=== PATIENT | female | born 1940 | race African-American/Black ===

== ENCOUNTER 2018-05-18 20:56 | Inpatient (IN) | payer MEDICARE, MEDICAID ==
[~2018-05-18] VITALS: Ht 157.5 cm; Wt 65.3 kg
[2018-05-19] MEDS ORDERED: SODIUM CHLORIDE 0.9% 1,000 ML IV ONE (00:09)
[2018-05-19] MEDS ORDERED: KETOROLAC 30MG/ML VIAL IV STA (00:09)
[2018-05-19] MEDS ORDERED: ONDANSETRON HCL 4MG/2ML INJ IV STA (00:09)
[2018-05-19 01:03] LABS: BASOPHILS % 0.4 % (0.0-2.0); EOSINOPHILS % 0.3 % (0.0-5.0); HEMATOCRIT. 33.8 % (36.0-48.0); HEMOGLOBIN. 11.4 g/dL (12.0-16.0); LYMPHOCYTES % 36.8 % (20.0-50.0); MEAN CORPUSCULAR VOLUME 94.6 fL (81.0-99.0); MEAN PLATELET VOLUME 8.4 fl (7.4-10.4); MONOCYTES % 9.8 % (2.0-8.0); NEUTROPHILS % 52.7 % (40.0-76.0); PLATELET 199 x1000/uL (130-400); RED BLOOD CELL COUNT 3.57 mill/uL (4.2-5.4); RED CELL DISTRIBUTION WIDTH 13.4 % (11.6-14.6)
[2018-05-19 01:09] LABS: CHLORIDE 93 mEq/L (98-107)
[2018-05-19] MEDS ORDERED: ONDANSETRON HCL 4MG/2ML INJ IV PRN (08:45)
[2018-05-19] MEDS ORDERED: DEXTROSE 50% WATER 50ML SYRINGE IV PRN (08:45)
[2018-05-19] MEDS: BLOOD SUGAR DIAGNOSTIC STRIP TEST SCH ×5 (09:19→21:00)
[2018-05-19] MEDS: INSULIN LISPRO 100 UNITS/ML SUBCUT SCH ×2 (11:50→19:13)
[2018-05-19] MEDS: SODIUM CHLORIDE 0.9% 1,000 ML IV SCH (12:45)
[2018-05-19 15:01] LABS: CLARITY URINE CLEAR (CLEAR); COLOR URINE YELLOW (YELLOW); KETONES URINE NEGATIVE (NEGATIVE); LEUKOCYTE ESTERASE URINE NEGATIVE (NEGATIVE); NITRITE URINE NEGATIVE (NEGATIVE); OCCULT BLOOD URINE NEGATIVE (NEGATIVE); PROTEIN URINE NEGATIVE (NEGATIVE); SPECIFIC GRAVITY URINE 1.019 (1.005-1.030); UROBILINOGEN URINE 0.2 E.U./dL (0.2-1.0)
[2018-05-19 15:51] LABS: CREATINE KINASE MB FRACTION 2.6 ng/mL (0.5-3.6)
[2018-05-19] MEDS ORDERED: INSULIN GLARGINE UD 100 UNITS/ML SYR SUBCUT SCH (22:00)
[2018-05-19 23:45] VITALS: BP 113/59
[2018-05-20] MEDS: INSULIN LISPRO 100 UNITS/ML SUBCUT SCH ×5 (00:38→20:45)
[2018-05-20] MEDS: INSULIN GLARGINE UD 100 UNITS/ML SYR SUBCUT SCH ×3 (00:39→21:35)
[2018-05-20 00:51] VITALS: BP 113/59
[2018-05-20] MEDS: SODIUM CHLORIDE 0.9% 1,000 ML IV SCH ×2 (02:27→14:55)
[2018-05-20 04:00] VITALS: BP 135/58
[2018-05-20 06:08] LABS: BASOPHILS % 0.3 % (0.0-2.0); EOSINOPHILS % 0.6 % (0.0-5.0); HEMATOCRIT. 30.3 % (36.0-48.0); HEMOGLOBIN. 10.5 g/dL (12.0-16.0); LYMPHOCYTES % 50.5 % (20.0-50.0); MEAN CORPUSCULAR VOLUME 92.4 fL (81.0-99.0); MEAN PLATELET VOLUME 8.9 fl (7.4-10.4); MONOCYTES % 9.2 % (2.0-8.0); NEUTROPHILS % 39.4 % (40.0-76.0); PLATELET 181 x1000/uL (130-400); RED BLOOD CELL COUNT 3.28 mill/uL (4.2-5.4); RED CELL DISTRIBUTION WIDTH 13.3 % (11.6-14.6)
[2018-05-20] MEDS: HYDROCODONE/ACETAMINOPHEN 5/325MG TABLET PO PRN ×3 (06:37→20:14)
[2018-05-20] MEDS: BLOOD SUGAR DIAGNOSTIC STRIP TEST SCH ×4 (06:39→20:38)
[2018-05-20 08:00] VITALS: BP 100/51
[2018-05-20] MEDS ORDERED: PNEUMOCOCCAL 23-VAL P-SAC VAC 0.5 ML IM ONE (08:00)
[2018-05-20] MEDS: ENOXAPARIN 40MG/0.4ML SYR SUBCUT SCH (09:25)
[2018-05-20] MEDS ORDERED: INFLUENZA VIRUS VACCINE(AFLURIA) 0.5ML SYR IM ONE (10:00)
[2018-05-20 12:00] VITALS: BP 113/52
[2018-05-20 16:00] VITALS: BP 126/70
[2018-05-20] MEDS ORDERED: HYDR-4005 MT (16:09)
[2018-05-20] MEDS ORDERED: NITR0.4T49 SL (16:09)
[2018-05-20] MEDS ORDERED: ZOLP5TAB2 MT (16:09)
[2018-05-20] MEDS ORDERED: FURO20TA4 MT (16:09)
[2018-05-20] MEDS ORDERED: LOSA100T14 MT (16:09)
[2018-05-20] MEDS ORDERED: LINA5TAB MT (16:09)
[2018-05-20] MEDS ORDERED: ACET-283 PO (16:09)
[2018-05-20] MEDS ORDERED: ASPI-1158 MT (16:09)
[2018-05-20] MEDS ORDERED: DOCU-150 MT (16:09)
[2018-05-20] MEDS ORDERED: ATOR20TA MT (16:09)
[2018-05-20] MEDS ORDERED: SENN-170 MT (16:09)
[2018-05-20] MEDS ORDERED: GLIP10TA10 MT (16:09)
[2018-05-20 20:00] VITALS: BP_SYST 111; BP_SYST 113; BP_DIAS 54; BP_DIAS 63
[2018-05-21] VITALS: BP 105/59
[2018-05-21 04:00] VITALS: BP 123/51
[2018-05-21] MEDS: SODIUM CHLORIDE 0.9% 1,000 ML IV SCH (04:15)
[2018-05-21] MEDS: BLOOD SUGAR DIAGNOSTIC STRIP TEST SCH ×4 (06:36→20:23)
[2018-05-21] MEDS: INSULIN LISPRO 100 UNITS/ML SUBCUT SCH ×4 (07:35→20:46)
[2018-05-21 08:00] VITALS: BP_SYST 142; BP_DIAS 65; BP_DIAS 69
[2018-05-21] MEDS: ENOXAPARIN 40MG/0.4ML SYR SUBCUT SCH (10:29)
[2018-05-21] MEDS: INSULIN GLARGINE UD 100 UNITS/ML SYR SUBCUT SCH ×2 (10:32→23:02)
[2018-05-21 11:55] VITALS: BP 136/50
[2018-05-21] MEDS: HYDROCODONE/ACETAMINOPHEN 5/325MG TABLET PO PRN (14:03)
[2018-05-21 16:00] VITALS: BP 122/48
[2018-05-21 17:13] LABS: VITAMIN B12 SERUM 630 pg/mL (211-911)
[2018-05-21 20:00] VITALS: BP_SYST 149; BP_SYST 156; BP_DIAS 60; BP_DIAS 64
[2018-05-21] MEDS: ACETAMINOPHEN 325MG TABLET PO PRN (22:58)
[2018-05-22] VITALS: BP 125/54
[2018-05-22 04:00] VITALS: BP 128/55
[2018-05-22] MEDS: INSULIN LISPRO 100 UNITS/ML SUBCUT SCH ×4 (05:42→20:59)
[2018-05-22] MEDS: BLOOD SUGAR DIAGNOSTIC STRIP TEST SCH ×4 (05:42→20:55)
[2018-05-22 07:03] LABS: BASOPHILS % 0.4 % (0.0-2.0); EOSINOPHILS % 1.2 % (0.0-5.0); HEMATOCRIT. 30.4 % (36.0-48.0); HEMOGLOBIN. 10.4 g/dL (12.0-16.0); LYMPHOCYTES % 54.9 % (20.0-50.0); MEAN CORPUSCULAR HEMOGLOBIN 31.7 pg (28.0-32.0); MEAN CORPUSCULAR VOLUME 92.8 fL (81.0-99.0); MEAN PLATELET VOLUME 8.8 fl (7.4-10.4); MONOCYTES % 8.8 % (2.0-8.0); NEUTROPHILS % 34.7 % (40.0-76.0); PLATELET 182 x1000/uL (130-400); RED BLOOD CELL COUNT 3.27 mill/uL (4.2-5.4); RED CELL DISTRIBUTION WIDTH 13.4 % (11.6-14.6)
[2018-05-22 08:00] VITALS: BP_SYST 123; BP_SYST 132; BP_SYST 136; BP_DIAS 57; BP_DIAS 64; BP_DIAS 78
[2018-05-22] MEDS: ENOXAPARIN 40MG/0.4ML SYR SUBCUT SCH (10:49)
[2018-05-22] MEDS: INSULIN GLARGINE UD 100 UNITS/ML SYR SUBCUT SCH ×2 (10:50→22:35)
[2018-05-22 12:00] VITALS: BP 128/54
[2018-05-22 16:00] VITALS: BP 142/62
[2018-05-22 20:00] VITALS: BP 127/53
[2018-05-22] MEDS: HYDROCODONE/ACETAMINOPHEN 5/325MG TABLET PO PRN (22:32)
[2018-05-23] VITALS: BP 139/52
[2018-05-23 04:00] VITALS: BP 133/58
[2018-05-23] MEDS: INSULIN LISPRO 100 UNITS/ML SUBCUT SCH ×4 (06:11→21:00)
[2018-05-23] MEDS: BLOOD SUGAR DIAGNOSTIC STRIP TEST SCH ×4 (06:11→20:58)
[2018-05-23 07:44] LABS: BASOPHILS % 0.4 % (0.0-2.0); EOSINOPHILS % 1.5 % (0.0-5.0); HEMATOCRIT. 30.1 % (36.0-48.0); HEMOGLOBIN. 10.2 g/dL (12.0-16.0); LYMPHOCYTES % 54.9 % (20.0-50.0); MEAN CORPUSCULAR HEMOGLOBIN 31.9 pg (28.0-32.0); MEAN PLATELET VOLUME 8.7 fl (7.4-10.4); MONOCYTES % 8.4 % (2.0-8.0); NEUTROPHILS % 34.8 % (40.0-76.0); PLATELET 165 x1000/uL (130-400); RED BLOOD CELL COUNT 3.21 mill/uL (4.2-5.4); RED CELL DISTRIBUTION WIDTH 13.4 % (11.6-14.6)
[2018-05-23 08:00] VITALS: BP 111/50
[2018-05-23 08:37] LABS: CHLORIDE 107 mEq/L (98-107)
[2018-05-23] MEDS: ENOXAPARIN 40MG/0.4ML SYR SUBCUT SCH (09:21)
[2018-05-23] MEDS: INSULIN GLARGINE UD 100 UNITS/ML SYR SUBCUT SCH ×2 (11:30→21:21)
[2018-05-23 12:00] VITALS: BP 132/67
[2018-05-23 16:00] VITALS: BP 129/57
[2018-05-23 20:00] VITALS: BP_SYST 106; BP_SYST 118; BP_SYST 129; BP_DIAS 52; BP_DIAS 60; BP_DIAS 64
[2018-05-24] VITALS (7 sets, daily range): BP systolic 110–143; BP diastolic 59–90
[2018-05-24] MEDS: ACETAMINOPHEN 325MG TABLET PO PRN (04:09)
[2018-05-24 06:24] LABS: BASOPHILS % 0.5 % (0.0-2.0); EOSINOPHILS % 1.1 % (0.0-5.0); HEMATOCRIT. 28.6 % (36.0-48.0); HEMOGLOBIN. 9.8 g/dL (12.0-16.0); LYMPHOCYTES % 42.4 % (20.0-50.0); MEAN CORPUSCULAR HEMOGLOBIN 31.8 pg (28.0-32.0); MEAN CORPUSCULAR VOLUME 93.1 fL (81.0-99.0); MEAN PLATELET VOLUME 8.6 fl (7.4-10.4); MONOCYTES % 10.1 % (2.0-8.0); NEUTROPHILS % 45.9 % (40.0-76.0); PLATELET 166 x1000/uL (130-400); RED BLOOD CELL COUNT 3.07 mill/uL (4.2-5.4); RED CELL DISTRIBUTION WIDTH 13.6 % (11.6-14.6)
[2018-05-24 07:15] LABS: CHLORIDE 108 mEq/L (98-107)
[2018-05-24] MEDS: INSULIN LISPRO 100 UNITS/ML SUBCUT SCH ×3 (07:40→17:40)
[2018-05-24] MEDS: BLOOD SUGAR DIAGNOSTIC STRIP TEST SCH ×3 (07:42→17:27)
[2018-05-24] MEDS: ENOXAPARIN 40MG/0.4ML SYR SUBCUT SCH (11:03)
[2018-05-24] MEDS: INSULIN GLARGINE UD 100 UNITS/ML SYR SUBCUT SCH (12:39)
== END 2018-05-24 22:45 | disposition home health service (06) | DRG 183 ==
LOC: ER 20:56 → 8WST 05-19 03:03 → EDBEDREQTM 05-19 03:05 → EDBEDREQ 05-19 03:05 → ENRESERV 05-19 20:29 → 8WST 05-20 09:05
PROVIDERS: ADMIT Internal Medicine; ATTEND Internal Medicine
PROC: 4A00X4Z Measurement of Central Nervous Electrical Activity, External Approach (ICD-10-PCS; principal; 2018-05-23)
DX: S22.42XA Multiple fractures of ribs, left side, initial encounter for closed fracture (principal); I21.4 Non-ST elevation (NSTEMI) myocardial infarction; E44.0 Moderate protein-calorie malnutrition; E87.1 Hypo-osmolality and hyponatremia; F03.91 Unspecified dementia, unspecified severity, with behavioral disturbance; E11.65 Type 2 diabetes mellitus with hyperglycemia; E78.5 Hyperlipidemia, unspecified; I10 Essential (primary) hypertension; E87.8 Other disorders of electrolyte and fluid balance, not elsewhere classified; D64.9 Anemia, unspecified; F03.90 Unspecified dementia, unspecified severity, without behavioral disturbance, psychotic disturbance, mood disturbance, and anxiety; K74.60 Unspecified cirrhosis of liver; M16.12 Unilateral primary osteoarthritis, left hip; Z96.649 Presence of unspecified artificial hip joint; W18.30XA Fall on same level, unspecified, initial encounter; Y93.01 Activity, walking, marching and hiking; Y92.090 Kitchen in other non-institutional residence as the place of occurrence of the external cause; Y99.8 Other external cause status; Z86.73 Personal history of transient ischemic attack (TIA), and cerebral infarction without residual deficits; Z68.26 Body mass index [BMI] 26.0-26.9, adult; Z90.49 Acquired absence of other specified parts of digestive tract
CPT/HCPCS: 36415; 71250; 74176; 80048; 80061; 82550; 82553; 82607; 82962; 84443; 84484; 90686; 90732; 93005; 93306; 96361; 96372; 96374; 96375; 97116; 97162; 97530; 99284; 99285; J1650; J1815; J1885; J2405; J7030

== ENCOUNTER 2020-10-13 12:26 | Emergency (ER) | payer MEDICARE, MEDICAID ==
[~2020-10-13] VITALS: Ht 162.6 cm; Wt 72.0 kg
[~2020-10-13 12:26] MED LIST: ACET-283 PO; ASPI-1406 MT; ATOR20TA MT; DOCU-150 MT; FURO20TA4 MT; HYDR-4005 MT; LINA5TAB MT; LOSA100T32 MT; NITR0.4T49 SL; SENN-257 MT; ZOLP5TAB2 MT
[2020-10-13 12:54] VITALS: BP 106/54
[2020-10-13] MEDS ORDERED: GABAPENTIN 100MG CAPSULE PO ONE (13:45)
[2020-10-13] MEDS ORDERED: ACETAMINOPHEN 325MG TABLET PO ONE (13:45)
[2020-10-13] MEDS ORDERED: CEPHALEXIN 250MG CAPSULE PO ONE (13:45)
[2020-10-13] MEDS ORDERED: CEPH500C2 MT (14:35)
[2020-10-13] MEDS ORDERED: ACET-2708 MT (14:35)
[2020-10-13] MEDS ORDERED: GABA-529 MT (14:35)
== END 2020-10-13 15:04 | disposition home or self-care (01) ==
LOC: ER 12:26
DX: L03.115 Cellulitis of right lower limb (principal); G62.9 Polyneuropathy, unspecified; E11.9 Type 2 diabetes mellitus without complications; I10 Essential (primary) hypertension; E78.00 Pure hypercholesterolemia, unspecified; M19.90 Unspecified osteoarthritis, unspecified site; Z96.641 Presence of right artificial hip joint
CPT/HCPCS: 73630; 99284

== ENCOUNTER 2021-08-14 22:36 | Inpatient (IN) | payer MEDICARE, MEDICAID ==
[~2021-08-14] VITALS: Ht 195.6 cm; Wt 78.1 kg
[~2021-08-14 22:36] MED LIST changes: +ACET-2708 MT; +CEPH500C2 MT; +GABA-529 MT
[2021-08-15] MEDS ORDERED: SODIUM CHLORIDE 0.9% 1,000 ML IV ONE
[2021-08-15 00:14] LABS: CHLORIDE 93 mEq/L (98-107); HEMATOCRIT. 31.1 % (36.0-48.0); HEMOGLOBIN. 10.4 g/dL (12.0-16.0); MEAN CORPUSCULAR HEMOGLOBIN 31.3 pg (28.0-32.0); MEAN CORPUSCULAR VOLUME 93.7 fL (81.0-99.0); MEAN PLATELET VOLUME 9.3 fl (7.4-10.4); PLATELET 131 x1000/uL (130-400); RED BLOOD CELL COUNT 3.32 mill/uL (4.2-5.4); RED CELL DISTRIBUTION WIDTH 13.9 % (11.6-14.6)
[2021-08-15 00:30] LABS: BETA HYDROXYBUTYRATE 0.1 mMol/L (0.0-0.3)
[2021-08-15] MEDS ORDERED: SODIUM CHLORIDE 0.9% 1000ML BAG (SEPSIS BOLUS) IV ONE (00:45)
[2021-08-15] MEDS ORDERED: ASPIRIN 325MG EC TABLET PO ONE (00:45)
[2021-08-15 01:33] LABS: CLARITY URINE CLOUDY (CLEAR); COLOR URINE YELLOW (YELLOW); KETONES URINE NEGATIVE (NEGATIVE); LEUKOCYTE ESTERASE URINE 1+ (NEGATIVE); NITRITE URINE NEGATIVE (NEGATIVE); OCCULT BLOOD URINE NEGATIVE (NEGATIVE); PROTEIN URINE TRACE (NEGATIVE); SPECIFIC GRAVITY URINE 1.015 (1.005-1.030)
[2021-08-15] MEDS ORDERED: CEFTRIAXONE 1 G PREMIX 50 ML IV ONE (03:00)
[2021-08-15 07:12] LABS: PLATELET ESTIMATE NORMAL
[2021-08-15] MEDS ORDERED: ONDANSETRON HCL 4MG/2ML INJ IV PRN (09:15)
[2021-08-15] MEDS ORDERED: DIPHENHYDRAMINE 50MG/ML VIAL IV PRN (09:15)
[2021-08-15] MEDS ORDERED: IPRATROPIUM/ALBUTEROL 0.5-3(2.5)MG/3ML NEB HHN PRN (09:15)
[2021-08-15] MEDS ORDERED: CLONIDINE 0.1MG TABLET PO PRN (09:15)
[2021-08-15] MEDS ORDERED: ACETAMINOPHEN 325MG TABLET PO PRN (09:15)
[2021-08-15 10:00] VITALS: BP 134/70
[2021-08-15] MEDS: SODIUM CHLORIDE 0.9% 1,000 ML IV SCH (10:00)
[2021-08-15 12:00] VITALS: BP 134/64
[2021-08-15 16:00] VITALS: BP 143/84
[2021-08-15] MEDS ORDERED: LORA-249 PO (16:35)
[2021-08-15] MEDS ORDERED: DONE-51 MT (16:37)
[2021-08-15] MEDS ORDERED: LOSA25TA26 MT (16:39)
[2021-08-15] MEDS ORDERED: DEXTROSE 50% WATER 50ML SYRINGE IV PRN (17:15)
[2021-08-15] MEDS: GUAIFENESIN 200MG/10ML SUGAR FREE UDC PO PRN (17:15)
[2021-08-15] MEDS: BLOOD SUGAR DIAGNOSTIC STRIP TEST SCH ×2 (17:37→21:00)
[2021-08-15] MEDS: INSULIN LISPRO 100 UNITS/ML SUBCUT SCH ×2 (17:40→22:10)
[2021-08-15 20:00] VITALS: BP 128/56
[2021-08-16] VITALS: BP 148/82
[2021-08-16] MEDS: GUAIFENESIN 200MG/10ML SUGAR FREE UDC PO PRN ×3 (00:45→17:23)
[2021-08-16] MEDS: SODIUM CHLORIDE 0.9% 1,000 ML IV SCH ×2 (01:24→12:37)
[2021-08-16 04:00] VITALS: BP 147/83
[2021-08-16] MEDS ORDERED: CEFTRIAXONE 1,000 MG in DEXTROSE 5% WATER 50 ML IV SCH (06:00)
[2021-08-16] MEDS: BLOOD SUGAR DIAGNOSTIC STRIP TEST SCH ×4 (06:18→20:54)
[2021-08-16 07:25] LABS: BASOPHILS % 0.1 % (0.0-2.0); EOSINOPHILS % 1.1 % (0.0-5.0); HEMATOCRIT. 28.9 % (36.0-48.0); HEMOGLOBIN. 9.7 g/dL (12.0-16.0); LYMPHOCYTES % 16.5 % (20.0-50.0); MEAN CORPUSCULAR HEMOGLOBIN 31.2 pg (28.0-32.0); MEAN CORPUSCULAR VOLUME 92.7 fL (81.0-99.0); MEAN PLATELET VOLUME 9.2 fl (7.4-10.4); MONOCYTES % 4.1 % (2.0-8.0); NEUTROPHILS % 78.2 % (40.0-76.0); PLATELET 136 x1000/uL (130-400); RED BLOOD CELL COUNT 3.11 mill/uL (4.2-5.4); RED CELL DISTRIBUTION WIDTH 13.9 % (11.6-14.6)
[2021-08-16 07:40] LABS: CHLORIDE 110 mEq/L (98-107)
[2021-08-16 07:52] LABS: CREATINE KINASE 71 IU/L (26-192); PHOSPHORUS 2.1 mg/dL (2.5-4.9)
[2021-08-16 08:00] VITALS: BP 150/61
[2021-08-16] MEDS: ENOXAPARIN 30MG/0.3ML SYR SUBCUT SCH (08:06)
[2021-08-16] MEDS: INSULIN LISPRO 100 UNITS/ML SUBCUT SCH ×4 (08:07→20:54)
[2021-08-16 12:00] VITALS: BP 147/64
[2021-08-16] MEDS: LORAZEPAM 2MG/ML CPJ IV PRN (13:29)
[2021-08-16] MEDS ORDERED: POTASSIUM CHLORIDE 20MEQ TABLET SR PO NR (14:00)
[2021-08-16] MEDS ORDERED: POTASSIUM PHOS,M-BASIC-D-BASIC 15 MMOL in DEXT 5% WATER 245 ML IV NR (15:30)
[2021-08-16 16:00] VITALS: BP 143/77
[2021-08-16 20:00] VITALS: BP 162/77
[2021-08-17] VITALS: BP 158/59
[2021-08-17] MEDS: LORAZEPAM 2MG/ML CPJ IV PRN (00:13)
[2021-08-17 04:00] VITALS: BP 159/98
[2021-08-17] MEDS: SODIUM CHLORIDE 0.9% 1,000 ML IV SCH (04:10)
[2021-08-17] MEDS ORDERED: CEFTRIAXONE 1,000 MG in DEXTROSE 5% WATER 50 ML IV SCH (06:00)
[2021-08-17] MEDS: BLOOD SUGAR DIAGNOSTIC STRIP TEST SCH ×2 (06:52→12:40)
[2021-08-17 06:58] LABS: BASOPHILS % 0.3 % (0.0-2.0); EOSINOPHILS % 0.8 % (0.0-5.0); HEMATOCRIT. 29.6 % (36.0-48.0); HEMOGLOBIN. 10.2 g/dL (12.0-16.0); LYMPHOCYTES % 24.3 % (20.0-50.0); MEAN CORPUSCULAR VOLUME 93.2 fL (81.0-99.0); MEAN PLATELET VOLUME 8.5 fl (7.4-10.4); MONOCYTES % 6.4 % (2.0-8.0); NEUTROPHILS % 68.2 % (40.0-76.0); PLATELET 143 x1000/uL (130-400); RED BLOOD CELL COUNT 3.17 mill/uL (4.2-5.4)
[2021-08-17 07:57] LABS: PHOSPHORUS 3.3 mg/dL (2.5-4.9)
[2021-08-17 08:00] VITALS: BP 126/64
[2021-08-17] MEDS: INSULIN LISPRO 100 UNITS/ML SUBCUT SCH ×2 (08:10→13:00)
[2021-08-17] MEDS: GUAIFENESIN 200MG/10ML SUGAR FREE UDC PO PRN (08:14)
[2021-08-17] MEDS: ENOXAPARIN 30MG/0.3ML SYR SUBCUT SCH (08:15)
[2021-08-17] MEDS ORDERED: LEVO500T90 MT (10:33)
[2021-08-17 10:57] VITALS: BP 146/62
[2021-08-17 12:00] VITALS: BP 176/62
[2021-08-31] MEDS ORDERED: CEPH500C2 MT (09:57)
== END 2021-08-17 14:43 | disposition home or self-care (01) | DRG 689 ==
LOC: ER 22:36 → EDBEDREQ 08-15 07:33 → EDBEDREQTM 08-15 07:34 → 7WST 08-15 07:50
PROVIDERS: ADMIT Internal Medicine; ATTEND Internal Medicine
DX: N39.0 Urinary tract infection, site not specified (principal); N17.0 Acute kidney failure with tubular necrosis; E44.0 Moderate protein-calorie malnutrition; E87.1 Hypo-osmolality and hyponatremia; G93.40 Encephalopathy, unspecified; D64.9 Anemia, unspecified; E11.65 Type 2 diabetes mellitus with hyperglycemia; E78.00 Pure hypercholesterolemia, unspecified; F03.90 Unspecified dementia, unspecified severity, without behavioral disturbance, psychotic disturbance, mood disturbance, and anxiety; E78.5 Hyperlipidemia, unspecified; E86.9 Volume depletion, unspecified; I10 Essential (primary) hypertension; Z20.822 Contact with and (suspected) exposure to COVID-19; Z68.20 Body mass index [BMI] 20.0-20.9, adult; Z79.2 Long term (current) use of antibiotics; Z79.82 Long term (current) use of aspirin; Z79.899 Other long term (current) drug therapy; Z96.649 Presence of unspecified artificial hip joint; Z90.49 Acquired absence of other specified parts of digestive tract; Z83.3 Family history of diabetes mellitus; Z82.49 Family history of ischemic heart disease and other diseases of the circulatory system; D72.825 Bandemia
CPT/HCPCS: 36415; 71045; 76770; 80048; 80053; 81003; 82010; 82550; 82962; 83605; 83735; 84100; 84443; 84484; 85025; 87077; 87186; 87426; 93005; 93306; 93970; 99285; J0696; J1200; J1650; J1815; J2060; J3490; J7030; J7060

== ENCOUNTER 2021-09-04 01:43 | Emergency (ER) | payer MEDICARE, MEDICAID ==
[~2021-09-04] VITALS: Ht 157.5 cm; Wt 78.0 kg
[~2021-09-04 01:43] MED LIST changes: +DONE-51 MT; -FURO20TA4 MT; -GABA-529 MT; -HYDR-4005 MT; +LORA-249 PO; -LOSA100T32 MT; +LOSA25TA26 MT; -NITR0.4T49 SL; -SENN-257 MT; -ZOLP5TAB2 MT
[2021-09-04] MEDS ORDERED: HYDROCODONE/ACETAMINOPHEN 5/325MG TABLET PO STA (03:09)
[2021-09-04 03:56] LABS: EOSINOPHILS % 2.8 % (0.0-5.0); HEMATOCRIT. 30.1 % (36.0-48.0); HEMOGLOBIN. 10.1 g/dL (12.0-16.0); LYMPHOCYTES % 34.3 % (20.0-50.0); MEAN CORPUSCULAR HEMOGLOBIN 31.4 pg (28.0-32.0); MEAN CORPUSCULAR VOLUME 93.1 fL (81.0-99.0); MEAN PLATELET VOLUME 8.1 fl (7.4-10.4); MONOCYTES % 9.3 % (2.0-8.0); NEUTROPHILS % 52.6 % (40.0-76.0); PLATELET 220 x1000/uL (130-400); RED BLOOD CELL COUNT 3.23 mill/uL (4.2-5.4); RED CELL DISTRIBUTION WIDTH 14.1 % (11.6-14.6)
[2021-09-04 04:06] LABS: CHLORIDE 101 mEq/L (98-107)
[2021-09-04] MEDS ORDERED: MORPHINE SULFATE 4 MG/ML CPJ (NOT FOR IM USE) IV ONE (05:45)
[2021-09-04 09:15] VITALS: BP 152/71
== END 2021-09-04 09:10 | disposition left against medical advice (07) ==
LOC: ER 02:13 → CANBEDREQ 09:06 → ER 09:10
DX: R10.12 Left upper quadrant pain (principal); F03.90 Unspecified dementia, unspecified severity, without behavioral disturbance, psychotic disturbance, mood disturbance, and anxiety; E11.9 Type 2 diabetes mellitus without complications; E78.00 Pure hypercholesterolemia, unspecified; I10 Essential (primary) hypertension; Z79.82 Long term (current) use of aspirin
CPT/HCPCS: 36415; 71045; 74176; 80053; 84484; 85025; 99285

== ENCOUNTER 2022-12-11 09:01 | Emergency (ER) | payer MEDICARE, MEDICAID ==
[~2022-12-11] VITALS: Ht 165.1 cm; Wt 77.0 kg
[2022-12-11 09:06] VITALS: O2SAT 100
[2022-12-11 10:32] LABS: INR 1.2; PROTHROMBIN TIME 12.7 sec (9.6-11.0)
[2022-12-11 10:34] LABS: BASOPHILS % 0.1 % (0.0-2.0); EOSINOPHILS % 0.4 % (0.0-5.0); HEMATOCRIT. 33.4 % (36.0-48.0); HEMOGLOBIN. 11.3 g/dL (12.0-16.0); LYMPHOCYTES % 15.9 % (20.0-50.0); MEAN CORPUSCULAR HEMOGLOBIN 31.3 pg (28.0-32.0); MEAN CORPUSCULAR HGB CONC 33.8 g/dL (31.0-37.0); MEAN CORPUSCULAR VOLUME 92.6 fL (81.0-99.0); MEAN PLATELET VOLUME 8.9 fl (7.4-10.4); MONOCYTES % 4.8 % (2.0-8.0); NEUTROPHILS % 78.8 % (40.0-76.0); PLATELET 156 x1000/uL (130-400); RED BLOOD CELL COUNT 3.61 mill/uL (4.2-5.4); RED CELL DISTRIBUTION WIDTH 14.3 % (11.6-14.6); WHITE BLOOD COUNT 11.3 x1000/uL (4.5-11.0)
[2022-12-11 10:41] LABS: CHLORIDE 108 mEq/L (98-107); INDEX HEMOLYSI 1 (1-3); INDEX ICTERIC 1 (1-4); INDEX LIPEMIC 1 (1-3); POTASSIUM 4.1 mEq/L (3.5-5.1); SODIUM 137 mEq/L (136-145)
[2022-12-11 10:52] LABS: ALANINE AMINOTRANSFERASE 27 IU/L (13-61); ASPARTATE AMINOTRANSFERASE 33 IU/L (15-37); BILIRUBIN TOTAL 0.8 mg/dL (0.1-1.0); CARBON DIOXIDE 24 mEq/L (21-32); CREATININE 1.3 mg/dL (0.6-1.3); GLUCOSE 186 mg/dL (70-105); PROTEIN TOTAL 8.3 g/dL (6.0-8.3); UREA NITROGEN BLOOD 25 mg/dL (7-21)
[2022-12-11 12:01] LABS: CLARITY URINE CLEAR (CLEAR); COLOR URINE YELLOW (YELLOW); GLUCOSE URINE TRACE (NEGATIVE); KETONES URINE NEGATIVE (NEGATIVE); LEUKOCYTE ESTERASE URINE NEGATIVE (NEGATIVE); NITRITE URINE NEGATIVE (NEGATIVE); OCCULT BLOOD URINE TRACE (NEGATIVE); PH URINE 5.5 (4.5-8.0); PROTEIN URINE TRACE (NEGATIVE); SPECIFIC GRAVITY URINE 1.014 (1.005-1.030); UROBILINOGEN URINE 0.2 E.U./dL (0.2-1.0)
[2022-12-11 12:03] LABS: YEAST URINE NONE SEEN
[2022-12-11 12:18] LABS: BACTERIA URINE FEW; RBC URINE 0-2 /hpf (0-2); SQUAMOUS EPITHELIAL CELL URINE FEW /lpf (RARE/1+); WBC URINE 0-2 /hpf (0-2)
[2022-12-11] MEDS ORDERED: ACET-2708 MT (14:43)
[2022-12-11 15:53] VITALS: BP 149/72; PULSE 70; RESP 18; TEMP 97.4
== END 2022-12-11 16:01 | disposition home or self-care (01) ==
LOC: ER 09:01
DX: M13.861 Other specified arthritis, right knee (principal); S80.01XA Contusion of right knee, initial encounter; R53.1 Weakness; R42 Dizziness and giddiness; I10 Essential (primary) hypertension; E78.00 Pure hypercholesterolemia, unspecified; E11.9 Type 2 diabetes mellitus without complications; Z79.899 Other long term (current) drug therapy; X58.XXXA Exposure to other specified factors, initial encounter; Y93.89 Activity, other specified; Y92.89 Other specified places as the place of occurrence of the external cause; Y99.8 Other external cause status
CPT/HCPCS: 36415; 73560; 80053; 81003; 83605; 85025; 93005; 99285

== ENCOUNTER 2022-12-19 11:16 | Inpatient (IN) | payer MEDICARE, MEDICAID ==
[~2022-12-19] VITALS: Ht 162.6 cm; Wt 84.8 kg
[2022-12-19 04:42] VITALS: BP 132/68; PULSE 67; RESP 20; TEMP 97.6
[2022-12-19] MEDS ORDERED: MORPHINE SULFATE 2 MG/ML CPJ (NOT FOR IM USE) IV NR (11:30)
[2022-12-19] MEDS ORDERED: NALOXONE HCL 0.4MG/ML VIAL IV PRN (11:45)
[2022-12-19 13:45] LABS: BASOPHILS % 0.2 % (0.0-2.0); EOSINOPHILS % 0.1 % (0.0-5.0); HEMOGLOBIN. 8.9 g/dL (12.0-16.0); LYMPHOCYTES % 12.5 % (20.0-50.0); MEAN CORPUSCULAR HEMOGLOBIN 30.8 pg (28.0-32.0); MEAN CORPUSCULAR VOLUME 93.5 fL (81.0-99.0); MEAN PLATELET VOLUME 8.4 fl (7.4-10.4); MONOCYTES % 6.1 % (2.0-8.0); NEUTROPHILS % 81.1 % (40.0-76.0); PLATELET 225 x1000/uL (130-400); RED BLOOD CELL COUNT 2.88 mill/uL (4.2-5.4); WHITE BLOOD COUNT 15.2 x1000/uL (4.5-11.0)
[2022-12-19 14:57] LABS: ALANINE AMINOTRANSFERASE 22 IU/L (13-61); ASPARTATE AMINOTRANSFERASE 19 IU/L (15-37); BILIRUBIN TOTAL 0.4 mg/dL (0.1-1.0); CALCIUM 7.2 mg/dL (8.5-10.1); CREATININE 3.5 mg/dL (0.6-1.3); NT PRO B-TYPE NATRIURETIC PEP 3861 pg/mL (5-125); PROTEIN TOTAL 7.7 g/dL (6.0-8.3); TROPONIN I HIGH SENSITIVITY 20 ng/L (<54)
[2022-12-19 15:50] LABS: ALBUMIN 2.5 g/dL (3.4-5.0); CARBON DIOXIDE 13 mEq/L (21-32); CHLORIDE 104 mEq/L (98-107); GLUCOSE 257 mg/dL (70-105); INDEX HEMOLYSI 1 (1-3); INDEX ICTERIC 1 (1-4); INDEX LIPEMIC 1 (1-3); POTASSIUM 4.5 mEq/L (3.5-5.1); SODIUM 130 mEq/L (136-145)
[2022-12-19 16:14] LABS: UREA NITROGEN BLOOD 122 mg/dL (7-21)
[2022-12-19 20:00] VITALS: BP 161/77; PULSE 85; RESP 16; TEMP 97.6
[2022-12-19] MEDS ORDERED: ACETAMINOPHEN 325MG TABLET PO PRN (22:15)
[2022-12-19] MEDS ORDERED: DEXTROSE 50% WATER 50ML SYRINGE IV PRN (22:30)
[2022-12-20] MEDS: ACETAMINOPHEN 325MG TABLET PO PRN ×2 (00:23→22:16)
[2022-12-20 04:00] VITALS: BP 119/53; PULSE 80; RESP 18; TEMP 98
[2022-12-20] MEDS: INSULIN LISPRO 100 UNITS/ML SUBCUT SCH ×4 (07:16→21:11)
[2022-12-20 07:24] LABS: BASOPHILS % 0.2 % (0.0-2.0); EOSINOPHILS % 0.2 % (0.0-5.0); HEMATOCRIT. 27.3 % (36.0-48.0); HEMOGLOBIN. 9.1 g/dL (12.0-16.0); LYMPHOCYTES % 26.7 % (20.0-50.0); MEAN CORPUSCULAR HEMOGLOBIN 31.5 pg (28.0-32.0); MEAN CORPUSCULAR HGB CONC 33.4 g/dL (31.0-37.0); MEAN CORPUSCULAR VOLUME 94.2 fL (81.0-99.0); MEAN PLATELET VOLUME 8.4 fl (7.4-10.4); NEUTROPHILS % 65.9 % (40.0-76.0); PLATELET 255 x1000/uL (130-400); RED CELL DISTRIBUTION WIDTH 15.1 % (11.6-14.6); WHITE BLOOD COUNT 13.1 x1000/uL (4.5-11.0)
[2022-12-20] MEDS: BLOOD SUGAR DIAGNOSTIC STRIP TEST SCH ×4 (09:00→21:05)
[2022-12-20] MEDS: AMLODIPINE 10MG TABLET PO SCH (09:00)
[2022-12-20] MEDS: ASPIRIN 81MG TABLET PO SCH (09:00)
[2022-12-20 09:01] VITALS: BP 137/63; PULSE 70; RESP 18; TEMP 97.7
[2022-12-20] MEDS: INSULIN GLARGINE 100 UNITS/ML SUBCUT SCH ×2 (12:00→21:45)
[2022-12-20 14:26] LABS: INDEX HEMOLYSI 3 (1-3); INDEX ICTERIC 1 (1-4); INDEX LIPEMIC 1 (1-3)
[2022-12-20 14:41] LABS: ALANINE AMINOTRANSFERASE 19 IU/L (13-61); ALBUMIN 2.3 g/dL (3.4-5.0); ASPARTATE AMINOTRANSFERASE 31 IU/L (15-37); BILIRUBIN DIRECT 0.1 mg/dL (0.0-0.2); BILIRUBIN TOTAL 0.6 mg/dL (0.1-1.0); CALCIUM 6.9 mg/dL (8.5-10.1); CARBON DIOXIDE 10 mEq/L (21-32); CHOLESTEROL 98 mg/dL (<200); GLUCOSE 204 mg/dL (70-105); HDL CHOLESTEROL 22 mg/dL (40-59); LDL CHOLESTEROL 58 mg/dL (5-100); PHOSPHORUS 7.2 mg/dL (2.5-4.9); PROTEIN TOTAL 7.6 g/dL (6.0-8.3); TRIGLYCERIDE 281 mg/dL (0-150)
[2022-12-20] MEDS ORDERED: SODIUM CHLORIDE 0.9% 1,000 ML IV SCH (15:30)
[2022-12-20 16:15] LABS: UREA NITROGEN BLOOD 121 mg/dL (7-21)
[2022-12-20 20:00] VITALS: PULSE 76; RESP 18; TEMP 96.7
[2022-12-20] MEDS ORDERED: ATORVASTATIN CALCIUM 20MG TABLET PO SCH (21:00)
[2022-12-20] MEDS: ENOXAPARIN 30MG/0.3ML SYR SUBCUT SCH (21:00)
[2022-12-20 21:20] LABS: CHLORIDE 106 mEq/L (98-107); POTASSIUM 4.2 mEq/L (3.5-5.1); SODIUM 131 mEq/L (136-145)
[2022-12-21] VITALS: BP 109/54; PULSE 72; RESP 18; TEMP 96.8
[2022-12-21 04:00] VITALS: BP 113/56; PULSE 70; RESP 17; TEMP 96.2
[2022-12-21] MEDS: ACETAMINOPHEN 325MG TABLET PO PRN ×2 (05:42→15:24)
[2022-12-21] MEDS: INSULIN LISPRO 100 UNITS/ML SUBCUT SCH ×4 (07:00→21:00)
[2022-12-21 07:03] LABS: BASOPHILS % 0.3 % (0.0-2.0); EOSINOPHILS % 0.2 % (0.0-5.0); HEMATOCRIT. 25.6 % (36.0-48.0); HEMOGLOBIN. 8.6 g/dL (12.0-16.0); LYMPHOCYTES % 24.6 % (20.0-50.0); MEAN CORPUSCULAR HEMOGLOBIN 31.9 pg (28.0-32.0); MEAN CORPUSCULAR HGB CONC 33.8 g/dL (31.0-37.0); MEAN CORPUSCULAR VOLUME 94.5 fL (81.0-99.0); MEAN PLATELET VOLUME 8.3 fl (7.4-10.4); MONOCYTES % 6.9 % (2.0-8.0); PLATELET 252 x1000/uL (130-400); RED BLOOD CELL COUNT 2.71 mill/uL (4.2-5.4); RED CELL DISTRIBUTION WIDTH 15.5 % (11.6-14.6); WHITE BLOOD COUNT 12.5 x1000/uL (4.5-11.0)
[2022-12-21 08:00] VITALS: BP 116/48; PULSE 69; RESP 18; TEMP 96.9
[2022-12-21] MEDS: BLOOD SUGAR DIAGNOSTIC STRIP TEST SCH ×4 (08:46→21:00)
[2022-12-21] MEDS: AMLODIPINE 10MG TABLET PO SCH (08:49)
[2022-12-21] MEDS: ASPIRIN 81MG TABLET PO SCH (08:49)
[2022-12-21 09:37] LABS: POTASSIUM 3.7 mEq/L (3.5-5.1)
[2022-12-21 09:42] LABS: CALCIUM 7.3 mg/dL (8.5-10.1); CREATININE 2.9 mg/dL (0.6-1.3)
[2022-12-21] MEDS: INSULIN GLARGINE 100 UNITS/ML SUBCUT SCH (10:00)
[2022-12-21 12:00] VITALS: BP 99/33; PULSE 60; RESP 19; TEMP 96.8
[2022-12-21 16:00] VITALS: BP 113/42; PULSE 62; RESP 18; TEMP 97.2
[2022-12-21 16:12] LABS: BG CARBOXYHEMOGLOBIN 0.8 % (0.5-1.5); BG DEOXYHEMOGLOBIN 0.8 % (0.0-5.0); BG FRACTION INSPIRED OXYGEN 28; BG HCO3 ACT 11.8 mmol/L (22.0-26.0); BG METHEMOGLOBIN 0.3 % (0.0-1.5); BG OXYGEN SATURATION 99.2 % (92.0-98.5); BG OXYHEMOGLOBIN 98.1 % (94.0-97.0); BG PCO2 24.1 mmHg (35.0-45.0); BG PH 7.308 (7.350-7.450); BG PO2 156.8 mmHg (75.0-100.0); BG SAMPLE SITE RIGHT RADIAL; BG TOTAL HEMOGLOBIN 8.7 g/dL (12.0-18.0); BG VENT MODE NASAL CANNULA
[2022-12-21] MEDS: SODIUM BICARBONATE 75 MEQ in SODIUM CHLORIDE 0.45% 1,000 ML IV SCH (16:53)
[2022-12-21] MEDS: POLYETHYLENE GLYCOL 3350 (17GM) 1 DOSE PACK PO SCH (17:01)
[2022-12-21] MEDS: CALCIUM CARBONATE 500MG TABLET CHEW PO SCH (17:08)
[2022-12-22] VITALS (10 sets, daily range): BP systolic 104–135; BP diastolic 48–81; PULSE 63–88; RESP 17–20; TEMP 94.6–97.1
[2022-12-22] MEDS: ATORVASTATIN CALCIUM 10MG TABLET PO SCH ×2 (02:42→20:17)
[2022-12-22] MEDS: ENOXAPARIN 30MG/0.3ML SYR SUBCUT SCH ×2 (05:04→09:22)
[2022-12-22] MEDS: CALCIUM CARBONATE 500MG TABLET CHEW PO SCH ×3 (06:28→16:22)
[2022-12-22] MEDS: BLOOD SUGAR DIAGNOSTIC STRIP TEST SCH ×4 (06:28→20:37)
[2022-12-22] MEDS: INSULIN LISPRO 100 UNITS/ML SUBCUT SCH ×4 (06:32→20:37)
[2022-12-22] MEDS: SODIUM BICARBONATE 75 MEQ in SODIUM CHLORIDE 0.45% 1,000 ML IV SCH (07:56)
[2022-12-22 07:59] LABS: MEAN CORPUSCULAR HEMOGLOBIN 31.6 pg (28.0-32.0); MEAN CORPUSCULAR HGB CONC 34.6 g/dL (31.0-37.0); MEAN CORPUSCULAR VOLUME 91.4 fL (81.0-99.0); MEAN PLATELET VOLUME 7.9 fl (7.4-10.4); PLATELET 165 x1000/uL (130-400); RED BLOOD CELL COUNT 1.78 mill/uL (4.2-5.4); RED CELL DISTRIBUTION WIDTH 14.8 % (11.6-14.6); WHITE BLOOD COUNT 7.2 x1000/uL (4.5-11.0)
[2022-12-22 08:16] LABS: DIFFERENTIAL COMMENT 1; HEMATOCRIT. 16.2 % (36.0-48.0); HEMOGLOBIN. 5.6 g/dL (12.0-16.0)
[2022-12-22] MEDS: POLYETHYLENE GLYCOL 3350 (17GM) 1 DOSE PACK PO SCH ×2 (09:00→16:22)
[2022-12-22] MEDS: ASPIRIN 81MG TABLET PO SCH (09:00)
[2022-12-22 09:30] LABS: CHLORIDE 100 mEq/L (98-107); INDEX HEMOLYSI 1 (1-3); INDEX ICTERIC 1 (1-4); INDEX LIPEMIC 1 (1-3); SODIUM 136 mEq/L (136-145)
[2022-12-22 09:32] LABS: POTASSIUM 2.5 mEq/L (3.5-5.1)
[2022-12-22 09:36] LABS: CARBON DIOXIDE 30 mEq/L (21-32); CREATININE 1.4 mg/dL (0.6-1.3); GLUCOSE 78 mg/dL (70-105); PHOSPHORUS 3.6 mg/dL (2.5-4.9)
[2022-12-22 09:37] LABS: UREA NITROGEN BLOOD 85 mg/dL (7-21)
[2022-12-22 09:40] LABS: CALCIUM < 5.0 mg/dL (8.5-10.1)
[2022-12-22] MEDS ORDERED: POTASSIUM CHLORIDE 20MEQ TABLET SR PO ONE (10:00)
[2022-12-22] MEDS: INSULIN GLARGINE 100 UNITS/ML SUBCUT SCH (10:00)
[2022-12-22 10:15] LABS: PLATELET ESTIMATE NORMAL
[2022-12-22] MEDS ORDERED: POTASSIUM CHLORIDE 20MEQ/PACKET PO SCH (10:15)
[2022-12-22] MEDS ORDERED: KCL 20MEQ/100ML PREMIX 100 ML IV ONE (10:30)
[2022-12-22] MEDS ORDERED: POTASSIUM CHLORIDE INJ 40 MEQ in SODIUM CHLORIDE 0.9% 500 ML IV ONE (10:30)
[2022-12-22] MEDS ORDERED: SODIUM CHLORIDE 0.9% 1,000 ML IV SCH (14:30)
[2022-12-22 15:52] LABS: HEMATOCRIT 23.6 % (36.0-48.0); HEMOGLOBIN 7.8 g/dL (12.0-16.0); MEAN CORPUSCULAR HEMOGLOBIN 30.8 pg (28.0-32.0); MEAN CORPUSCULAR HGB CONC 33.2 g/dL (31.0-37.0); MEAN CORPUSCULAR VOLUME 92.9 fL (81.0-99.0); PLATELET 230 x1000/uL (130-400); RED BLOOD CELL COUNT 2.54 mill/uL (4.2-5.4); RED CELL DISTRIBUTION WIDTH 14.9 % (11.6-14.6); WHITE BLOOD COUNT 9.6 x1000/uL (4.5-11.0)
[2022-12-22 16:06] LABS: CALCIUM 8.2 mg/dL (8.5-10.1); POTASSIUM 4.8 mEq/L (3.5-5.1)
[2022-12-22 16:14] LABS: CREATININE 1.9 mg/dL (0.6-1.3)
[2022-12-22 19:16] LABS: CLARITY URINE CLOUDY (CLEAR); COLOR URINE YELLOW (YELLOW); GLUCOSE URINE NEGATIVE (NEGATIVE); KETONES URINE NEGATIVE (NEGATIVE); LEUKOCYTE ESTERASE URINE NEGATIVE (NEGATIVE); NITRITE URINE NEGATIVE (NEGATIVE); OCCULT BLOOD URINE TRACE (NEGATIVE); PROTEIN URINE TRACE (NEGATIVE); SPECIFIC GRAVITY URINE 1.016 (1.005-1.030)
[2022-12-22] MEDS: SUCRALFATE 1 G/10 ML UDC PO SCH (20:17)
[2022-12-22 20:58] LABS: BACTERIA URINE 1+; COARSE GRANULAR CASTS URINE 0-5 /lpf; SQUAMOUS EPITHELIAL CELL URINE 2+ /lpf (RARE/1+); WBC URINE 0-2 /hpf (0-2)
[2022-12-23] VITALS: BP 135/58; PULSE 75; RESP 20; TEMP 97
[2022-12-23 00:45] VITALS: BP 135/60; PULSE 75; RESP 20; TEMP 97
[2022-12-23 04:00] VITALS: BP 141/66; PULSE 75; RESP 19; TEMP 97
[2022-12-23] MEDS: INSULIN LISPRO 100 UNITS/ML SUBCUT SCH ×4 (05:30→21:07)
[2022-12-23] MEDS: BLOOD SUGAR DIAGNOSTIC STRIP TEST SCH ×4 (05:31→20:55)
[2022-12-23] MEDS: CALCIUM CARBONATE 500MG TABLET CHEW PO SCH ×3 (05:58→16:14)
[2022-12-23 08:00] VITALS: BP 150/79; PULSE 75; RESP 18; TEMP 96.8
[2022-12-23] MEDS: PANTOPRAZOLE SODIUM 40 MG/VIAL IV SCH (09:11)
[2022-12-23] MEDS: POLYETHYLENE GLYCOL 3350 (17GM) 1 DOSE PACK PO SCH ×2 (09:11→16:14)
[2022-12-23] MEDS: SUCRALFATE 1 G/10 ML UDC PO SCH ×4 (09:11→20:51)
[2022-12-23] MEDS: ACETAMINOPHEN 325MG TABLET PO PRN (09:17)
[2022-12-23] MEDS ORDERED: LIDOCAINE HCL 1% 10 MG/ML 10ML VIAL ONE (09:51)
[2022-12-23] MEDS: INSULIN GLARGINE 100 UNITS/ML SUBCUT SCH (10:08)
[2022-12-23 12:00] VITALS: BP 140/69; PULSE 70; RESP 17; TEMP 97
[2022-12-23] MEDS ORDERED: SODIUM BICARBONATE IV SCH (12:00)
[2022-12-23] MEDS ORDERED: SODIUM CHLORIDE 0.45% IV SCH (12:00)
[2022-12-23] MEDS ORDERED: BISACODYL 5MG TABLET PO SCH (12:30)
[2022-12-23] MEDS ORDERED: SORBITOL 70% SOLN 30ML PO SCH (12:30)
[2022-12-23] MEDS: SODIUM BICARBONATE 50 MEQ in SODIUM CHLORIDE 0.45% 1,000 ML IV SCH (12:40)
[2022-12-23 16:58] LABS: BASOPHILS % 0.2 % (0.0-2.0); EOSINOPHILS % 0.1 % (0.0-5.0); HEMATOCRIT. 32.5 % (36.0-48.0); HEMOGLOBIN. 10.9 g/dL (12.0-16.0); LYMPHOCYTES % 12.4 % (20.0-50.0); MEAN CORPUSCULAR HEMOGLOBIN 30.9 pg (28.0-32.0); MEAN CORPUSCULAR HGB CONC 33.5 g/dL (31.0-37.0); MEAN CORPUSCULAR VOLUME 92.3 fL (81.0-99.0); MEAN PLATELET VOLUME 7.7 fl (7.4-10.4); MONOCYTES % 4.9 % (2.0-8.0); NEUTROPHILS % 82.4 % (40.0-76.0); PLATELET 232 x1000/uL (130-400); RED BLOOD CELL COUNT 3.52 mill/uL (4.2-5.4); RED CELL DISTRIBUTION WIDTH 15.7 % (11.6-14.6)
[2022-12-23 17:28] LABS: POTASSIUM 4.3 mEq/L (3.5-5.1)
[2022-12-23 17:32] LABS: CREATININE 1.5 mg/dL (0.6-1.3); PHOSPHORUS 3.7 mg/dL (2.5-4.9)
[2022-12-23 17:56] LABS: FOLIC ACID (FOLATE) SERUM 10.2 ng/mL (>5.38)
[2022-12-23 20:00] VITALS: BP 144/41; PULSE 81; RESP 18; TEMP 96.9
[2022-12-23] MEDS: ATORVASTATIN CALCIUM 10MG TABLET PO SCH (20:51)
[2022-12-23] MEDS: LOSARTAN 25 MG TABLET PO SCH (20:51)
[2022-12-24] VITALS: PULSE 80; RESP 18; TEMP 98.3
[2022-12-24] MEDS: SODIUM BICARBONATE 50 MEQ in SODIUM CHLORIDE 0.45% 1,000 ML IV SCH ×2 (01:54→17:28)
[2022-12-24] MEDS: ACETAMINOPHEN 325MG TABLET PO PRN (02:48)
[2022-12-24 04:40] VITALS: BP 133/50; PULSE 80; RESP 16; TEMP 97.5
[2022-12-24] MEDS: CALCIUM CARBONATE 500MG TABLET CHEW PO SCH ×3 (06:08→17:29)
[2022-12-24] MEDS: BLOOD SUGAR DIAGNOSTIC STRIP TEST SCH ×4 (06:12→21:35)
[2022-12-24 06:33] LABS: HEMATOCRIT. 27.6 % (36.0-48.0); HEMOGLOBIN. 9.6 g/dL (12.0-16.0); MEAN CORPUSCULAR HGB CONC 34.8 g/dL (31.0-37.0); MEAN PLATELET VOLUME 7.9 fl (7.4-10.4); PLATELET 216 x1000/uL (130-400); RED CELL DISTRIBUTION WIDTH 15.7 % (11.6-14.6); WHITE BLOOD COUNT 8.8 x1000/uL (4.5-11.0)
[2022-12-24 06:37] LABS: DIFFERENTIAL COMMENT 1
[2022-12-24] MEDS: INSULIN LISPRO 100 UNITS/ML SUBCUT SCH ×4 (06:38→21:39)
[2022-12-24 08:00] VITALS: BP 132/53; PULSE 70; RESP 18; TEMP 96.3
[2022-12-24] MEDS: POLYETHYLENE GLYCOL 3350 (17GM) 1 DOSE PACK PO SCH ×2 (09:00→17:28)
[2022-12-24 10:28] LABS: POTASSIUM 3.7 mEq/L (3.5-5.1)
[2022-12-24 10:33] LABS: CALCIUM 8.8 mg/dL (8.5-10.1); CREATININE 1.3 mg/dL (0.6-1.3)
[2022-12-24] MEDS: PANTOPRAZOLE SODIUM 40 MG/VIAL IV SCH (10:41)
[2022-12-24] MEDS: SUCRALFATE 1 G/10 ML UDC PO SCH ×4 (10:42→21:35)
[2022-12-24] MEDS: INSULIN GLARGINE 100 UNITS/ML SUBCUT SCH (10:43)
[2022-12-24 12:00] VITALS: BP 147/64; PULSE 85; RESP 18; TEMP 97
[2022-12-24 12:10] LABS: PLATELET ESTIMATE NORMAL
[2022-12-24 16:00] VITALS: BP 140/76; PULSE 77; RESP 18; TEMP 96.8
[2022-12-24 20:00] VITALS: PULSE 76; RESP 17; TEMP 97
[2022-12-24] MEDS: ATORVASTATIN CALCIUM 10MG TABLET PO SCH (21:35)
[2022-12-24] MEDS: LOSARTAN 25 MG TABLET PO SCH (21:35)
[2022-12-25] VITALS: PULSE 79; RESP 17; TEMP 96.8
[2022-12-25 04:00] VITALS: BP 150/42; PULSE 75; RESP 18; TEMP 96.8
[2022-12-25] MEDS: SODIUM BICARBONATE 50 MEQ in SODIUM CHLORIDE 0.45% 1,000 ML IV SCH ×2 (05:54→20:00)
[2022-12-25] MEDS: CALCIUM CARBONATE 500MG TABLET CHEW PO SCH ×3 (06:51→17:40)
[2022-12-25] MEDS: BLOOD SUGAR DIAGNOSTIC STRIP TEST SCH ×4 (06:51→22:07)
[2022-12-25] MEDS: INSULIN LISPRO 100 UNITS/ML SUBCUT SCH ×4 (06:59→22:08)
[2022-12-25 08:00] VITALS: BP 166/61; PULSE 73; RESP 16; TEMP 96.5
[2022-12-25] MEDS: PANTOPRAZOLE SODIUM 40 MG/VIAL IV SCH (08:51)
[2022-12-25] MEDS: SUCRALFATE 1 G/10 ML UDC PO SCH ×4 (08:51→21:18)
[2022-12-25] MEDS: POLYETHYLENE GLYCOL 3350 (17GM) 1 DOSE PACK PO SCH ×2 (08:51→17:40)
[2022-12-25] MEDS: INSULIN GLARGINE 100 UNITS/ML SUBCUT SCH (09:03)
[2022-12-25 12:00] VITALS: BP 140/86; PULSE 78; RESP 17; TEMP 96
[2022-12-25 16:00] VITALS: BP 125/89; PULSE 75; RESP 18; TEMP 96.6
[2022-12-25 20:00] VITALS: BP 151/73; PULSE 84; RESP 20; TEMP 97.1
[2022-12-25] MEDS: LOSARTAN 25 MG TABLET PO SCH (21:18)
[2022-12-25] MEDS: ATORVASTATIN CALCIUM 10MG TABLET PO SCH (21:18)
[2022-12-26] VITALS: BP 151/63; PULSE 91; RESP 20; TEMP 96.8
[2022-12-26 04:00] VITALS: BP 162/73; PULSE 77; RESP 20; TEMP 97.7
[2022-12-26] MEDS: BLOOD SUGAR DIAGNOSTIC STRIP TEST SCH ×2 (06:28→21:25)
[2022-12-26] MEDS: INSULIN LISPRO 100 UNITS/ML SUBCUT SCH ×3 (06:29→21:30)
[2022-12-26 06:40] LABS: BASOPHILS % 0.3 % (0.0-2.0); EOSINOPHILS % 0.5 % (0.0-5.0); HEMOGLOBIN. 9.6 g/dL (12.0-16.0); LYMPHOCYTES % 26.5 % (20.0-50.0); MEAN CORPUSCULAR HEMOGLOBIN 31.2 pg (28.0-32.0); MEAN CORPUSCULAR HGB CONC 33.1 g/dL (31.0-37.0); MEAN CORPUSCULAR VOLUME 94.1 fL (81.0-99.0); MEAN PLATELET VOLUME 7.8 fl (7.4-10.4); MONOCYTES % 7.1 % (2.0-8.0); NEUTROPHILS % 65.6 % (40.0-76.0); PLATELET 192 x1000/uL (130-400); RED BLOOD CELL COUNT 3.08 mill/uL (4.2-5.4); RED CELL DISTRIBUTION WIDTH 16.2 % (11.6-14.6); WHITE BLOOD COUNT 10.9 x1000/uL (4.5-11.0)
[2022-12-26 08:00] VITALS: BP 121/86; PULSE 83; RESP 18; TEMP 96.6
[2022-12-26] MEDS: PANTOPRAZOLE SODIUM 40 MG/VIAL IV SCH (10:13)
[2022-12-26] MEDS: POLYETHYLENE GLYCOL 3350 (17GM) 1 DOSE PACK PO SCH ×2 (10:13→18:39)
[2022-12-26] MEDS: ACETAMINOPHEN 325MG TABLET PO PRN (10:14)
[2022-12-26] MEDS: INSULIN GLARGINE 100 UNITS/ML SUBCUT SCH (10:30)
[2022-12-26 10:34] LABS: CHLORIDE 112 mEq/L (98-107); INDEX HEMOLYSI 1 (1-3); INDEX ICTERIC 1 (1-4); INDEX LIPEMIC 1 (1-3); POTASSIUM 3.6 mEq/L (3.5-5.1); SODIUM 142 mEq/L (136-145)
[2022-12-26 10:55] LABS: ALANINE AMINOTRANSFERASE 14 IU/L (13-61); ALBUMIN 2.2 g/dL (3.4-5.0); ASPARTATE AMINOTRANSFERASE 23 IU/L (15-37); BILIRUBIN TOTAL 0.8 mg/dL (0.1-1.0); CALCIUM 8.7 mg/dL (8.5-10.1); CARBON DIOXIDE 25 mEq/L (21-32); CREATININE 1.3 mg/dL (0.6-1.3); GLUCOSE 149 mg/dL (70-105); PHOSPHORUS 2.3 mg/dL (2.5-4.9); PROTEIN TOTAL 6.4 g/dL (6.0-8.3); UREA NITROGEN BLOOD 40 mg/dL (7-21)
[2022-12-26] MEDS: CALCIUM CARBONATE 500MG TABLET CHEW PO SCH ×3 (11:07→18:38)
[2022-12-26] MEDS: SUCRALFATE 1 G/10 ML UDC PO SCH ×4 (11:07→21:23)
[2022-12-26 12:00] VITALS: BP 149/78; PULSE 79; RESP 18; TEMP 96.8
[2022-12-26] MEDS ORDERED: POLY17PO43 PO (12:56)
[2022-12-26] MEDS ORDERED: SUCR1TAB30 MT (12:56)
[2022-12-26] MEDS ORDERED: LANTUSUD SUBCUT (12:56)
[2022-12-26] MEDS ORDERED: TRAM50TA3 MT (12:56)
[2022-12-26] MEDS ORDERED: ASPI-1406 MT (12:56)
[2022-12-26] MEDS ORDERED: ATOR20TA MT (12:56)
[2022-12-26] MEDS ORDERED: LOSA25TA26 PO (12:56)
[2022-12-26] MEDS ORDERED: MAGNESIUM 2 G PREMIX 50 ML IV NR (13:00)
[2022-12-26] MEDS ORDERED: POTASSIUM PHOS,M-BASIC-D-BASIC 15 MMOL in DEXT 5% WATER 245 ML IV NR (13:30)
[2022-12-26] MEDS ORDERED: NA PHOS,M-B/NA PHOS,DI-BA ENEMA 118ML PR NR (13:30)
[2022-12-26 16:00] VITALS: BP 152/74; PULSE 85; RESP 20; TEMP 97.3
[2022-12-26 20:00] VITALS: BP 140/83; PULSE 82; RESP 20; TEMP 97.1
[2022-12-26] MEDS: ATORVASTATIN CALCIUM 10MG TABLET PO SCH (20:57)
[2022-12-26] MEDS: LOSARTAN 25 MG TABLET PO SCH (21:23)
[2022-12-27] VITALS (7 sets, daily range): BP systolic 136–174; BP diastolic 60–83; PULSE 73–100; RESP 17–20; TEMP 96.4–97.8; O2SAT 100
[2022-12-27] MEDS: CALCIUM CARBONATE 500MG TABLET CHEW PO SCH ×3 (07:01→18:33)
[2022-12-27] MEDS: BLOOD SUGAR DIAGNOSTIC STRIP TEST SCH ×4 (07:01→21:00)
[2022-12-27 07:03] LABS: BASOPHILS % 0.3 % (0.0-2.0); EOSINOPHILS % 0.8 % (0.0-5.0); HEMATOCRIT. 27.8 % (36.0-48.0); HEMOGLOBIN. 9.5 g/dL (12.0-16.0); LYMPHOCYTES % 23.4 % (20.0-50.0); MEAN CORPUSCULAR HEMOGLOBIN 31.4 pg (28.0-32.0); MEAN CORPUSCULAR HGB CONC 34.1 g/dL (31.0-37.0); MEAN CORPUSCULAR VOLUME 92.3 fL (81.0-99.0); MEAN PLATELET VOLUME 8.3 fl (7.4-10.4); MONOCYTES % 6.4 % (2.0-8.0); NEUTROPHILS % 69.1 % (40.0-76.0); PLATELET 186 x1000/uL (130-400); RED BLOOD CELL COUNT 3.01 mill/uL (4.2-5.4); WHITE BLOOD COUNT 10.2 x1000/uL (4.5-11.0)
[2022-12-27] MEDS: INSULIN LISPRO 100 UNITS/ML SUBCUT SCH ×4 (07:09→21:00)
[2022-12-27 08:10] LABS: POTASSIUM 3.7 mEq/L (3.5-5.1)
[2022-12-27 08:15] LABS: CALCIUM 8.1 mg/dL (8.5-10.1); CREATININE 1.1 mg/dL (0.6-1.3); PHOSPHORUS 3.8 mg/dL (2.5-4.9)
[2022-12-27] MEDS: PANTOPRAZOLE SODIUM 40 MG/VIAL IV SCH (09:37)
[2022-12-27] MEDS: POLYETHYLENE GLYCOL 3350 (17GM) 1 DOSE PACK PO SCH ×2 (10:03→18:34)
[2022-12-27] MEDS: SUCRALFATE 1 G/10 ML UDC PO SCH ×4 (10:03→21:21)
[2022-12-27] MEDS: INSULIN GLARGINE 100 UNITS/ML SUBCUT SCH (10:58)
[2022-12-27] MEDS: SODIUM BICARBONATE 50 MEQ in SODIUM CHLORIDE 0.45% 1,000 ML IV SCH ×3 (13:56)
[2022-12-27] MEDS: ATORVASTATIN CALCIUM 10MG TABLET PO SCH (21:21)
[2022-12-27] MEDS: LOSARTAN 25 MG TABLET PO SCH (21:23)
== END 2022-12-27 22:55 | disposition home health service (06) | DRG 559 ==
LOC: ER 11:16 → EDBEDREQSVC 13:56 → EDBEDREQTM 13:56 → EDBEDREQ 13:56 → 4WST 20:59
PROVIDERS: ADMIT Internal Medicine; ATTEND Internal Medicine
PROC: 30233N1 Transfusion of Nonautologous Red Blood Cells into Peripheral Vein, Percutaneous Approach (ICD-10-PCS; 2022-12-22)
PROC: 02HV33Z Insertion of Infusion Device into Superior Vena Cava, Percutaneous Approach (ICD-10-PCS; principal; 2022-12-23)
PROC: B548ZZA Ultrasonography of Superior Vena Cava, Guidance (ICD-10-PCS; 2022-12-23)
DX: M97.01XA Periprosthetic fracture around internal prosthetic right hip joint, initial encounter (principal); G93.41 Metabolic encephalopathy; N17.0 Acute kidney failure with tubular necrosis; S42.91XA Fracture of right shoulder girdle, part unspecified, initial encounter for closed fracture; E87.1 Hypo-osmolality and hyponatremia; E87.20 Acidosis, unspecified; K92.2 Gastrointestinal hemorrhage, unspecified; L97.409 Non-pressure chronic ulcer of unspecified heel and midfoot with unspecified severity; N39.0 Urinary tract infection, site not specified; D72.829 Elevated white blood cell count, unspecified; E66.9 Obesity, unspecified; F03.90 Unspecified dementia, unspecified severity, without behavioral disturbance, psychotic disturbance, mood disturbance, and anxiety; E11.42 Type 2 diabetes mellitus with diabetic polyneuropathy; S90.822A Blister (nonthermal), left foot, initial encounter; R26.9 Unspecified abnormalities of gait and mobility; Z96.641 Presence of right artificial hip joint; N18.32 Chronic kidney disease, stage 3b; I12.9 Hypertensive chronic kidney disease with stage 1 through stage 4 chronic kidney disease, or unspecified chronic kidney disease; S42.001A Fracture of unspecified part of right clavicle, initial encounter for closed fracture; E83.51 Hypocalcemia; E78.5 Hyperlipidemia, unspecified; D64.9 Anemia, unspecified; E11.22 Type 2 diabetes mellitus with diabetic chronic kidney disease; R29.6 Repeated falls; M25.461 Effusion, right knee; R79.89 Other specified abnormal findings of blood chemistry; M16.12 Unilateral primary osteoarthritis, left hip; K59.09 Other constipation; M81.0 Age-related osteoporosis without current pathological fracture; Z79.4 Long term (current) use of insulin; Z79.84 Long term (current) use of oral hypoglycemic drugs; Z79.899 Other long term (current) drug therapy; Z82.49 Family history of ischemic heart disease and other diseases of the circulatory system; Z83.3 Family history of diabetes mellitus; W18.30XA Fall on same level, unspecified, initial encounter; Y93.89 Activity, other specified; Y92.89 Other specified places as the place of occurrence of the external cause; Y99.8 Other external cause status
CPT/HCPCS: 36415; 36573; 36600; 70486; 71045; 72190; 73030; 73560; 73700; 76770; 80048; 80053; 80061; 81003; 82248; 82270; 82375; 82550; 82607; 82728; 82746; 82805; 82962; 83036; 83540; 83550; 83605; 83735; 83880; 83970; 84100; 84145; 84443; 84484; 85025; 85027; 85044; 86850; 86900; 86920; 92610; 93005; 93306; 93970; 97110; 97162; 97166; 97530; 99285; A4565; A6261; C1725; C1893; C9113; J1650; J1815; J2270; J3475; J3480; J3490; J7030; J7060; P9016

== ENCOUNTER 2024-10-29 13:27 | Emergency (ER) | payer MEDICARE, MEDICAID ==
[~2024-10-29] VITALS: Ht 172.7 cm; Wt 70.0 kg
[~2024-10-29 13:27] MED LIST changes: -ACET-283 PO; -CEPH500C2 MT; -DOCU-150 MT; +LANTUSUD SUBCUT; -LOSA25TA26 MT; +LOSA25TA26 PO; +POLY17PO43 PO; +SUCR1TAB30 MT; +TRAM50TA3 MT
[2024-10-29 13:29] VITALS: O2SAT 98
[2024-10-29 14:59] LABS: BASOPHILS % 0.2 % (0.0-2.0); EOSINOPHILS % 0.5 % (0.0-5.0); HEMATOCRIT. 34.4 % (36.0-48.0); HEMOGLOBIN. 11.4 g/dL (12.0-16.0); LYMPHOCYTES % 18.0 % (20.0-50.0); MEAN PLATELET VOLUME 9.7 fl (7.4-10.4); MONOCYTES % 5.9 % (2.0-8.0); NEUTROPHILS % 75.4 % (40.0-76.0); PLATELET 179 x1000/uL (130-400); RED BLOOD CELL COUNT 3.55 mill/uL (4.2-5.4); RED CELL DISTRIBUTION WIDTH 14.6 % (11.6-14.6)
[2024-10-29 15:10] LABS: INR 1.2
[2024-10-29 15:18] LABS: UREA NITROGEN BLOOD 43 mg/dL (9-23)
[2024-10-29 15:19] LABS: CREATININE 1.6 mg/dL (0.6-1.0)
[2024-10-29 15:21] LABS: ASPARTATE AMINOTRANSFERASE 9 IU/L (<34)
[2024-10-29 15:22] LABS: BILIRUBIN DIRECT 0.2 mg/dL (<=3.0); BILIRUBIN TOTAL 0.4 mg/dL (0.1-1.0); PROTEIN TOTAL 7.4 g/dL (6.0-8.3)
[2024-10-29] MEDS ORDERED: IOHEXOL-300 100 ML BOTTLE ONE (16:06)
[2024-10-29] MEDS: SODIUM CHLORIDE 0.9% 1,000 ML IV ONE (17:04)
[2024-10-29] MEDS: PIPERACILLIN/TAZO 3.375G/50ML 50 ML IV ONE (17:04)
[2024-10-29] MEDS: VANCOMYCIN 1G PREMIX 200 ML IV ONE (17:36)
[2024-10-29] MEDS: INSULIN REGULAR (HUMULIN R) 1000UNITS/10ML VIAL SUBCUT ONE (18:02)
[2024-10-29 19:54] VITALS: BP 139/91; PULSE 81; RESP 13; TEMP 36.7; O2SAT 99
== END 2024-10-29 20:22 | disposition short-term general hospital (02) ==
LOC: ER 13:27
DX: A41.9 Sepsis, unspecified organism (principal); E11.65 Type 2 diabetes mellitus with hyperglycemia; L89.159 Pressure ulcer of sacral region, unspecified stage; F03.90 Unspecified dementia, unspecified severity, without behavioral disturbance, psychotic disturbance, mood disturbance, and anxiety; E78.00 Pure hypercholesterolemia, unspecified; R06.02 Shortness of breath; Z79.899 Other long term (current) drug therapy
CPT/HCPCS: 99291; 74177; 96365; 96367; 80076; 80048; 82010; 83880; 83605; 83690; 83735; 85025; 85610; 87040; 87077; 36415; 84145; 93005; Q9967; J2543; J3373; J7030; J1815; A4606